=== PATIENT | female | born 1965 | race Caucasian/White ===

== ENCOUNTER 2017-08-28 06:48 | Day surgery (SDC) | payer BC ==
[~2017-08-28 06:48] MED LIST: Lactated Ringers 1,000 ML IV SCH; Sodium Chloride 0.9% 10 ML Syringe FLUSH PRN
[2017-08-28] MEDS ORDERED: Propofol 200 MG/20 ML SDV IV ONE (08:00)
[2017-08-28] MEDS ORDERED: Midazolam 1 MG/ML 2 ML SDV IV ONE (08:00)
--- NOTE | 2017-08-28 08:22 | PCM.OPNOTE ---
- General Post-Op/Procedure Note Date of Surgery/Procedure: 08/28/17 Operative Procedure(s): c scope Findings: diverticulosis Pre Op Diagnosis: hx of dysplastic colon polyp. diverticulosis Post-Op Diagnosis: diverticulosis Anesthesia Technique: MAC Primary Surgeon: Marcial Arzola Anesthesia Provider: Carolyn Bean Pathology: none Complications: None Condition: Good Free Text/Narrative:: see dictation
--- NOTE | 2017-08-28 08:40 | PREOP ---
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 HISTORY OF PRESENT ILLNESS: This is a 52-year-old white female, who was scoped last year, found to have a polyp with low-grade dysplasia in the ascending colon, was due for a followup colonoscopy. At this time, she is without complaints. MEDICATIONS: At the time of admission included: 1. Valtrex 1000 mg 2 times a day for 2 doses. 2. Chlorpheniramine maleate 1 tablet per day as needed. ALLERGIES: She has no known drug allergies. PAST MEDICAL HISTORY: Significant for history of polyps of the ascending colon, diverticular disease of the large intestine, as well as history of clotting disorder. PAST SURGICAL HISTORY: Significant for as well as colonoscopy. FAMILY HISTORY: Significant for diabetes and stroke with her mother and father respectively. SOCIAL HISTORY: The patient is . Does not smoke, has an occasional drink. REVIEW OF SYSTEMS: CONSTITUTIONAL: Denies any constitutional issues. HEENT: Negative. EYES: Negative. RESPIRATORY: Negative. CARDIOVASCULAR: Negative. GASTROINTESTINAL: Negative. GENITOURINARY: Negative. MUSCULOSKELETAL: Positive for occasional back pain. PHYSICAL EXAMINATION: GENERAL: This is a well-developed, well-nourished, white female, appearing in no acute distress. VITAL SIGNS: Her vital signs are stable. She is afebrile. HEENT: Grossly within normal limits. LUNGS: Clear to auscultation. HEART: Regular rate and rhythm. ABDOMEN: Soft and nontender. ASSESSMENT: History of dysplastic colon polyp. PLAN: Colonoscopy. Procedure and risks were explained to the patient to include bleeding, infection, perforation. The patient expresses understanding. She asked us to proceed. /[id number] /MODL JAVYD
[2017-08-28 09:04] VITALS: BP 122/78
--- NOTE | 2017-08-28 15:12 | OR ---
DATE OF OPERATION: 08/28/2017 SURGEON: Marcial Arzola MD PROCEDURE PERFORMED: Colonoscopy. PREOPERATIVE DIAGNOSIS: History of dysplastic colon polyp of the ascending colon. POSTOPERATIVE DIAGNOSIS: Diverticulosis. INDICATIONS FOR PROCEDURE: This is a 52-year-old white female, who underwent a colonoscopy last year, was found to have a polyp with some low-grade dysplasia. She presents now for a followup scope. DESCRIPTION OF PROCEDURE: After an excellent IV sedation was administered, digital rectal exam was performed. No marked abnormality was noted. Flexible colonoscope was inserted and advanced to the cecum without difficulty. The prep was excellent. The following findings were noted. Ascending colon, scattered diverticula. Transverse colon, scattered diverticula. Descending colon, scattered diverticula. Sigmoid scattered diverticula. Rectum and anus were unremarkable. Colon was deflated as the scope was removed. The patient tolerated the procedure well and was taken to recovery room in good condition. /[id number] /MODL
== END 2017-08-28 09:15 | disposition home or self-care (01) ==
LOC: FB.SDS 06:48
PROVIDERS: ATTEND Surgery
DX: Z09 Encounter for follow-up examination after completed treatment for conditions other than malignant neoplasm (principal); K57.30 Diverticulosis of large intestine without perforation or abscess without bleeding; Z86.010 Personal history of colon polyps
CPT/HCPCS: 45378; J2250; J2704; J7120

== ENCOUNTER 2022-09-22 07:45 | Day surgery (SDC) | payer BC ==
[2022-09-22] MEDS ORDERED: Propofol 200 MG/20 ML SDV IV ONE (07:46)
[2022-09-22] MEDS ORDERED: Lidocaine 2% 100 MG/5 ML Syringe IVPUSH ONE (07:46)
[2022-09-22 10:30] VITALS: BP 106/68; PULSE 82
== END 2022-09-22 10:23 | disposition home or self-care (01) ==
LOC: FB.SDS 07:45
PROVIDERS: ATTEND Surgery
DX: Z12.11 Encounter for screening for malignant neoplasm of colon (principal); D12.6 Benign neoplasm of colon, unspecified; K57.30 Diverticulosis of large intestine without perforation or abscess without bleeding; Z86.010 Personal history of colon polyps; Z79.899 Other long term (current) drug therapy; Z98.890 Other specified postprocedural states
CPT/HCPCS: 00811; 88305; J2704; J7120